=== PATIENT | male | born 1970 | race Two or more races ===

== ENCOUNTER 2023-09-05 10:18 | Outpatient (CLI) | payer OTHER | END 2023-09-05 10:23 | disposition home or self-care (01) | LOC: SONOGRAMA 10:18 | PROVIDERS: ATTEND Pathology Anatomic Pathology & Clinical Pathology | DX: D44.0 Neoplasm of uncertain behavior of thyroid gland (principal); E04.8 Other specified nontoxic goiter ==

== ENCOUNTER 2024-05-25 09:15 | Outpatient (CLI) | payer OTHER | END 2024-05-25 09:28 | disposition home or self-care (01) | LOC: SONOGRAMA 09:15 | PROVIDERS: ATTEND Pathology Anatomic Pathology & Clinical Pathology | DX: D44.0 Neoplasm of uncertain behavior of thyroid gland (principal); E04.8 Other specified nontoxic goiter ==